=== PATIENT | female | born 1955 | race Caucasian/White ===

== ENCOUNTER → 2021-10-22 12:13 | Outpatient (CLI) | payer MEDICARE, SELFPAY | PROVIDERS: PCP Nurse Practitioner Family; Referring Provider Nurse Practitioner Family; Visit Provider Nurse Practitioner Family | DX: Z13.820 Encounter for screening for osteoporosis (principal); M81.0 Age-related osteoporosis without current pathological fracture; Z78.0 Asymptomatic menopausal state | CPT/HCPCS: 77080 ==

== ENCOUNTER → 2022-02-10 11:57 | Outpatient (CLI) | payer MEDICARE, SELFPAY ==
--- NOTE | 2022-02-10 11:58 | DI.US.S_ITS ---
PROCEDURE: US ABDOMEN COMPLETE INDICATIONS: UPPER ABDOMEN PAIN TECHNIQUE: Real-time scanning was performed of the abdominal and retroperitoneal organs, with image documentation. COMPARISON: None. FINDINGS: Liver: The liver measures 18.5 cm in length. There are multiple circumscribed anechoic hepatic cysts. An echogenic 1.2 x 1.1 x 1.2 cm nodule is present within the right hepatic lobe. No intrahepatic biliary ductal dilatation. Gallbladder: The gallbladder wall measures 2 mm in diameter. No stones, sludge, pericholecystic fluid, or sonographic Garduno sign. Biliary ducts: Intrahepatic bile ducts are non-dilated. Extrahepatic bile duct caliber measures 6 mm. Normal is 6-7 mm or less in diameter, or 10 mm or less post-cholecystectomy. Pancreas: Visualized portions of the pancreas are sonographically normal. Spleen: Spleen is normal in size and homogeneous in echotexture. Kidneys: Kidneys are normal in size and echotexture. Right kidney measures 11.4 cm long; left kidney measures 11.0 cm long. No hydronephrosis or nephrolithiasis. No solid masses. There is a left simple cyst which measures 2.9 cm in diameter. Aorta: Visualized aorta is normal in caliber at less than 3 cm. Iliacs: Proximal common iliac arteries are normal in caliber at less than 2.5 cm. IVC: Intrahepatic inferior vena cava is patent. Miscellaneous: No free abdominal fluid. IMPRESSION: 1. No cholelithiasis or findings to suggest choledocholithiasis or acute cholecystitis. 2. Probable hepatic hemangioma. Follow-up ultrasound in 6 and 12 months is recommended to ensure stability of this finding. Dictated by: Marcelle Adame M.D. on 02/10/2022 at 14:29 Approved by: Marcelle Adame M.D. on 02/10/2022 at 14:32
== END ==
PROVIDERS: PCP Nurse Practitioner Family; Referring Provider Family Medicine; Visit Provider Family Medicine
DX: R10.10 Upper abdominal pain, unspecified (principal)
CPT/HCPCS: 76700

== ENCOUNTER → 2022-04-11 10:58 | Outpatient (CLI) | payer MEDICARE, SELFPAY ==
--- NOTE | 2022-04-11 | DI.RAD.S_ITS ---
PROCEDURE: FL BARIUM SWALLOW W AIR COMPARISON: None. INDICATIONS: DYSPHAGIA FINDINGS: Patient show normal swallowing motion and normal transition of contrast through the esophagus into stomach lumen. Normal esophageal wall peristalsis is seen. No intraluminal filling defect or ulceration is seen. No high-grade stenosis or external mass compression. Normal contrast distension of stomach without intraluminal filling defect or external mass compression. No large ulceration is seen. Normal contrast transition into proximal small bowel loops is seen. There is normal passage of a swallowed barium tablet into stomach lumen. IMPRESSION: Normal study. No finding to explain patient's symptoms. Dictated by: Johnny Lundy M.D. on 04/11/2022 at 15:26 Approved by: Johnny Lundy M.D. on 04/11/2022 at 15:29
== END ==
PROVIDERS: PCP Family Medicine; Referring Provider Family Medicine; Visit Provider Family Medicine
DX: R13.10 Dysphagia, unspecified (principal)
CPT/HCPCS: 74221